=== PATIENT | male | born 1990 | race Caucasian/White ===

== ENCOUNTER 2018-10-01 15:35 | Emergency (ER) | payer OTHER ==
[2018-10-01 15:42] VITALS: BP 110/79
[2018-10-01] MEDS ORDERED: LIDOCAINE 4%/MENTHOL 1% PATCH TD ONE (16:31)
--- NOTE | 2018-10-01 16:31 | EDPHY ---
H & P Stated Complaint: ladder sle causing fall yesterday/landed on coccyx/ back pain Time Seen by Provider: 10/01/18 15:51 HPI/ROS: CHIEF COMPLAINT: Low back pain HISTORY OF PRESENT ILLNESS: 28-year-old male presents after a fall with low back pain. He was standing on a ladder yesterday at work, when the ladder slid out from under him and he fell directly onto his buttocks. He then fell backwards and his head struck the ground. He had a mild headache yesterday, now resolved. Today he complains of moderate buttock and low back pain. Ibuprofen with some relief. No numbness or weakness. 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 - Social History Smoking Status: Never smoked Alcohol Use: Sober Drug Use: None - Physical Exam Exam: General Appearance: Alert, pleasant Eyes: Pupils equal and round, no conjunctival pallor or injection ENT, Mouth: Mucous membranes moist Neck: Normal inspection Respiratory: Lungs are clear to auscultation Cardiovascular: Regular rate and rhythm Gastrointestinal: Abdomen is soft and nontender Back: Normal inspection, tender over the coccyx without swelling, tender left lower lumbar area, no midline tenderness over the lumbar spine Neurological: A&O, motor 5/5, normal gait Skin: Warm and dry Extremities: Normal inspection Psychiatric: Mood and affect normal Constitutional: Initial Vital Signs Temperature (C) 36.9 C 10/01/18 15:39 Heart Rate 82 10/01/18 15:39 Respiratory Rate 18 10/01/18 15:39 Blood Pressure 110/79 10/01/18 15:39 O2 Sat (%) 96 10/01/18 15:39 O2 Delivery Mode Room Air Allergies/Adverse Reactions: morphine [Morphine] Adverse Reaction (Intermediate, Verified 10/01/18 15:37) Vomiting Home Medications: Medication Instructions Recorded Adderall 20 mg tab 40 mg PO DAILY 06/14/09 Medical Decision Making - Diagnostics Imaging Results: Imaging Impressions Lumbar Spine X-Ray 10/01/18 15:52 Impression: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 Sacrum and Coccyx X-Ray 10/01/18 15:52 Impression: 1. 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 This finding was present on prior CT lumbar spine June 29, 2004. 2. No sacral or coccygeal fracture identified. Imaging: I viewed and interpreted images myself ED Course/Re-evaluation: This patient presents with low back and coccygeal pain after a fall. X-rays are unremarkable, no evidence of fracture. A lidocaine patch was placed. Ibuprofen instructions given. Departure - Departure Disposition: Home, Routine, Self-Care Clinical Impression: Low back strain, Coccyx contusion Condition: Good Instructions: Coccyx Injury (ED), Low Back Strain (ED) Additional Instructions: Ibuprofen 600 mg 3 times daily while the pain persists. You may also take Tylenol 650 mg every 4 hr as needed for pain. Use a lidocaine patch as directed on the packaging. Referrals: Alfredo Vallejo DO [Primary Care Provider] - As per Instructions
[2018-10-01] MEDS ORDERED: PATCH REMOVAL 1 EA PATCH TD SCH (21:00)
== END 2018-10-01 16:32 | disposition home or self-care (01) ==
DX: S39.012A Strain of muscle, fascia and tendon of lower back, initial encounter (principal); S30.0XXA Contusion of lower back and pelvis, initial encounter; W11.XXXA Fall on and from ladder, initial encounter